=== PATIENT | female | born 1985 | race Caucasian/White ===

== ENCOUNTER 2024-05-15 15:21 | Emergency (ER) | payer BC, SELFPAY ==
[2024-05-15 15:30] VITALS: BP 196/115; PULSE 102; RESP 16; TEMP 36.9; O2SAT 99; BMI 28.1
--- NOTE | 2024-05-15 17:28 | ED.ALCOHOL ---
HPI - Alcohol <Marian العلي PA-C - Last Filed: 05/15/24 19:28> General Chief Complaint: Toxicology Problem Stated Complaint: [facility] patient, withdrawl Time Seen by Provider: 05/15/24 16:54 Source: patient Mode of arrival: Family Vehicle History of Present Illness HPI narrative: Ms. Parker is a pleasant 38-year-old female with a past medical history of methadone use, migraines, anxiety/depression who presents to the emergency department for methadone withdrawal symptoms. Patient had her last dose of methadone on 05/13/2024. She takes 80 mg daily. She went away this weekend for her daughter's gymnastics competition and while she did set up with a clinic in [place] to have a dose, they were closed therefore she could not get her dose yesterday or today. She receives her daily dose from [facility] here in [place] but they are closed on Sundays. Patient reports her symptoms are anxiousness, body aches nausea, headaches. She went to an ER in [place] yesterday but they were unable to give her methadone, so they gave her a benzo for sx. She denies chest pain, shortness of breath, fevers. Related Data Home Medications Medication Instructions Recorded Confirmed bupropion HCl [Wellbutrin] PO 08/09/18 08/09/18 Previous Rx's Medication Instructions Recorded erenumab-aooe 70 mg/mL 140 mg (2 mL) SUBCUT QMONTH #2 mL 02/10/18 subcutaneous auto-injector (Aimovig Autoinjector 140 mg/2 Pack () hydrocodone 7.5 mg-acetaminophen 1 tab PO Q4HP PRN headache #10 tabs 08/09/18 325 mg tablet meperidine 50 mg tablet 50 mg PO Q6H PRN headache #20 tabs 08/09/18 zolpidem 10 mg tablet (Ambien) 10 mg PO HS #30 tabs 08/09/18 erenumab-aooe 140 mg/mL 140 mg SUBCUT QMONTH #1 mL 11/02/18 subcutaneous auto-injector (Aimovig Autoinjector) hydrocodone 7.5 mg-acetaminophen 1 tab PO DAILY PRN pain #25 tabs 11/02/18 325 mg tablet meperidine 50 mg tablet 50 mg PO Q4H #30 tabs 11/02/18 eletriptan 40 mg tablet 40 mg PO Q2-4H PRN migraine 11/30/18 headache #18 tabs galcanezumab-gnlm 120 mg/mL 120 mg SUBCUT QMONTH #1 mL 02/03/19 subcutaneous syringe (Emgality) propranolol 80 mg capsule,24 80 mg PO DAILY #30 caps 02/03/19 hr,extended release zolpidem 5 mg tablet 5 mg PO BEDTIME #30 tabs 02/03/19 hydrocodone 7.5 mg-acetaminophen 0.5 tab PO Q6-8H PRN pain #15 tabs 04/07/19 325 mg tablet hydrocodone 7.5 mg-acetaminophen 0.5 tab PO Q6-8H PRN pain #45 tabs 05/12/19 325 mg tablet sumatriptan succinate 25 mg tablet 25 mg PO ONCE #20 tabs 05/12/19 zolpidem 5 mg tablet 5 mg PO BEDTIME PRN insomnia #30 05/12/19 tabs Allergies Allergy/AdvReac Type Severity Reaction Status Date / Time No Known Allergies Allergy Uncoded 05/12/19 10:31 Review of Systems <Marian العلي PA-C - Last Filed: 05/15/24 19:28> Review of Systems ROS Unobtainable: All systems reviewed & are unremarkable except as noted in HPI and below Patient History <Marian العلي PA-C - Last Filed: 05/15/24 19:28> Surgical History History of wisdom tooth extraction History of cholecystectomy Status post tendon repair Family History Father Heart attack Heart disease Mother Skin cancer Migraines Grandmother Skin cancer Migraines Family/Other Migraines Social History Smoking Status: Never smoker Smoking Status: Never smoker Exam <Marian العلي PA-C - Last Filed: 05/15/24 19:28> Narrative Exam Narrative: GENERAL: 38 year old patient appears stated age. Well-developed patient, in no acute distress, sitting in dark room with lights off, uncomfortable. HEAD: Atraumatic. Normocephalic. EYES: PERRL. Extraocular motions intact. No scleral icterus. No injection or drainage. CARDIOVASCULAR: Regular rate and rhythm. RESPIRATORY: ?Nonlabored respirations. ?Speaking in clear, full sentences. ?Clear to auscultation. NEURO: AOx3. ?Clear speech. ?Moves all 4 extremities appropriately. SKIN: No rash or erythema of visible areas Initial Vital Signs Initial Vital Signs: Vital Signs Temperature 98.5 F 05/15/24 15:30 Pulse Rate 102 H 05/15/24 15:30 Respiratory Rate 16 05/15/24 15:30 Blood Pressure 196/115 H 05/15/24 15:30 Pulse Oximetry 99 05/15/24 15:30 Oxygen Delivery Method Room Air 05/15/24 15:30 <Herminio Tony DO - Last Filed: 05/15/24 19:36> Initial Vital Signs Initial Vital Signs: Vital Signs Temperature 98.5 F 05/15/24 15:30 Pulse Rate 102 H 05/15/24 15:30 Respiratory Rate 16 05/15/24 15:30 Blood Pressure 196/115 H 05/15/24 15:30 Pulse Oximetry 99 05/15/24 15:30 Oxygen Delivery Method Room Air 05/15/24 15:30 Course <Marian العلي PA-C - Last Filed: 05/15/24 19:28> Orders Ordered: Discontinued Medications Methadone HCl (Methadone Intensol 10 Mg/Ml Oral.Conc) 80 mg PO NOW ONE Stop: 05/15/24 17:57 Last Admin: 05/15/24 18:47 Dose: 80 mg Documented By: SPF Consultations Consultation #1: Called [facility]. Spoke with after hours rep Kwon. She confirmed patient is on 80 mg of methadone daily. Time: 17:49 Vital Signs Vital signs: Vital Signs - 8 hr 05/15/24 15:30 05/15/24 18:53 Temperature 98.5 F 98.0 F Pulse Rate 102 H 66 Respiratory Rate 16 16 Blood Pressure 196/115 H 161/100 H Pulse Oximetry 99 97 Oxygen Delivery Method Room Air Room Air <DO Estefania Hernandez Last Filed: 05/15/24 19:36> Orders Ordered: Discontinued Medications Methadone HCl (Methadone Intensol 10 Mg/Ml Oral.Conc) 80 mg PO NOW ONE Stop: 05/15/24 17:57 Last Admin: 05/15/24 18:47 Dose: 80 mg Documented By: MARCIAL Vital Signs Vital signs: Vital Signs - 8 hr 05/15/24 15:30 05/15/24 18:53 Temperature 98.5 F 98.0 F Pulse Rate 102 H 66 Respiratory Rate 16 16 Blood Pressure 196/115 H 161/100 H Pulse Oximetry 99 97 Oxygen Delivery Method Room Air Room Air MDM - Alcohol <Marian العلي PA-C - Last Filed: 05/15/24 19:28> Medical Records Attestation: I reviewed the patient's medical records. [facility] Narrative Medical decision making narrative: 38-year-old female with a past medical history of methadone use, migraines, anxiety/depression who presents to the emergency department for methadone withdrawal symptoms. Last dose 05/13/2024. Differential diagnosis includes but is not limited to methadone withdrawal, tension headache, migraine headache, viral syndrome, etc. On exam patient is in no acute distress, nontoxic appearing. She is hypertensive and tachycardic in triage however very anxious and tearful. After discussion with the patient, she missed last 2 doses of methadone. Called and confirmed this with [facility], also confirmed her daily dose. We will provide patient with her normal dose. After receiving dose in ED and spending some time resting, patient is feeling much better, vital signs improved. We did discuss that her blood pressure continued to be slightly elevated and she should take this pressure daily and follow up with her PCP for further evaluation. Recommended return to the ER for any new or worsening symptoms. Patient verbalized understanding of all information and is agreeable to plan. She is stable for discharge home. Discharge Plan Departure Patient Disposition: Home Clinical Impression: Methadone withdrawal without complication Instructions: DI for Drug or Alcohol Withdrawal Activity Restrictions/Additional Instructions: Today you were evaluated for withdrawal after missing 2 methadone doses. You were given an 80 mg dose of methadone in the ER. Please follow up with [facility] tomorrow as usual. Please return to the ER if you develop any new or worsening symptoms. Your blood pressure was elevated in the ER today. Please take your blood pressure at home or at a pharmacy daily, record these values, and bring them with you to your next primary care doctor's appointment. Please follow up with your primary care doctor within the next 2-3 days for ER follow-up. (If you do not have a PCP you can call [phone]. ?to schedule an appointment with an [facility] Primary Care Provider) IF YOU DEVELOP ANY NEW OR WORSENING SYMPTOMS, RETURN TO THE ER! Please read the attached instructions, they highlight more specific treatments and interventions for you at home. Thank you for letting me participate in your care, Marian العلي PA-C Prescriptions: No Action eletriptan 40 mg tablet 40 mg PO Q2-4H PRN (Reason: migraine headache) Qty: 18 11RF Rx Instructions: until response; not to exceed 2 doses in a 24 hour period hydrocodone-acetaminophen 7.5-325 mg tablet 0.5 tab PO Q6-8H PRN (Reason: pain) Qty: 15 0RF Rx Instructions: No refill till May 06, 2019 erenumab-aooe [Aimovig Autoinjector (2 Pack)] 70 mg/mL auto-injector 140 mg SUBCUT QMONTH Qty: 2 11RF Rx Instructions: administer as two 70 mg injections at separate sites bupropion HCl PO zolpidem [Ambien] 10 mg tablet 10 mg PO HS Qty: 30 5RF hydrocodone-acetaminophen 7.5-325 mg tablet 1 tab PO Q4HP PRN (Reason: headache) Qty: 10 0RF meperidine 50 mg tablet 50 mg PO Q6H PRN (Reason: headache) Qty: 20 0RF meperidine 50 mg tablet 50 mg PO Q4H Qty: 30 0RF hydrocodone-acetaminophen 7.5-325 mg tablet 1 tab PO DAILY PRN (Reason: pain) Qty: 25 0RF Aimovig Autoinjector 140 mg/mL auto-injector 140 mg SUBCUT QMONTH Qty: 1 12RF Rx Instructions: administer as two 70 mg injections at separate sites zolpidem 5 mg tablet 5 mg PO BEDTIME Qty: 30 2RF Rx Instructions: may repeat once if no response in 30-60 minutes Emgality Syringe 120 mg/mL syringe 120 mg SUBCUT QMONTH Qty: 1 12RF propranolol 80 mg capsule,extended release 24 hr 80 mg PO DAILY Qty: 30 5RF sumatriptan succinate 25 mg tablet 25 mg PO ONCE Qty: 20 5RF Rx Instructions: 3/day for 5 days for menses migraine. zolpidem 5 mg tablet 5 mg PO BEDTIME PRN (Reason: insomnia) Qty: 30 5RF hydrocodone-acetaminophen 7.5-325 mg tablet 0.5 tab PO Q6-8H PRN (Reason: pain) Qty: 45 0RF Rx Instructions: no refill until August 10, 2019 Referrals: Elza Diaz ARNP [Primary Care Provider] - Stand Alone Forms: Patient Portal/API/Survey ED Sign-out <Herminio Tony DO - Last Filed: 05/15/24 19:36> Cosign ED Attending Cosignature Attestation: Dr Tony Co-Sign Statement: I was available for consultation during this patient's emergency department visit. This chart is signed by myself for administrative purposes only. I did not have direct contact with this patient during this visit. They were seen independently by the APC.
[2024-05-15] MEDS: METHADONE INTENSOL 10 MG/ML ORAL.CONC 80 MG PO (18:47)
[2024-05-15 18:53] VITALS: BP 161/100; PULSE 66; RESP 16; TEMP 36.7; O2SAT 97
== END 2024-05-15 19:30 | disposition home or self-care (01) ==
PROVIDERS: Emergency Provider Physician Assistant; PCP Nurse Practitioner Family
DX: F11.93 Opioid use, unspecified with withdrawal (principal); F41.9 Anxiety disorder, unspecified; R11.0 Nausea; R51.9 Headache, unspecified
CPT/HCPCS: 99283